=== PATIENT | female | born 1995 | race Caucasian/White ===

== ENCOUNTER → 2019-01-13 | Outpatient (CLI) | payer OTHER ==
[~2019-01-13] MED LIST: AMOX875T60 PO; DOXY-228 PO; HYDR473S9 PO; IBU600 PO; LOR5 PO; MECL25TA9 PO; NO ROUTINE MEDS; ONDA4TAB97 PO; PHEN240S3 PO; SUMA25TA26 PO
[2019-01-13 11:43] LABS: PLATELET COUNT, AUTOMATED 298 K/uL (150-450)
[2019-01-13 14:12] LABS: LDL CHOLESTEROL 104 mg/dl
--- NOTE | 2019-01-13 14:20 | RADIOLOGY IMAGING REPORT ---
FACILITY: [facility] - [place] PATIENT NAME: Henry Shore : 1995 MR: [id number] V: [id number] EXAM DATE: ORDERING PHYSICIAN: JB MARTINEZ TECHNOLOGIST: Location: [facility] - [place] Patient: Henry Shore : 1995 Visit/Account:[id number] Date of Sevice: 01/13/2019 CHEST PA LAT History: Left sided chest pressure. FINDINGS: Comparison studies: Comparison chest x-ray 06/23/2014 Tubes and Lines: None. Lungs and pleura: Well aerated. No evidence of focal consolidation or pleural effusions. Mediastinum: normal. Cardiac silhouette: normal . Osseous structures: Unremarkable for age . IMPRESSION: Normal chest Report Dictated By: Marino Rutherford MD at 01/13/2019 2:10 PM Report E-Signed By: Marino Rutherford MD at 01/13/2019 2:11 PM WSN:[email or web address]
--- NOTE | 2019-01-13 14:30 | EKG ---
FACILITY: [facility] - [place] PATIENT NAME: JOYCE SHERWOOD : [id number] MR: [id number] V: [id number] EXAM DATE: ORDERING PHYSICIAN: JB MARTINEZ TECHNOLOGIST: JENNIFER WHITT Test Reason : Blood Pressure : / mmHG Vent. Rate : 074 BPM Atrial Rate : 074 BPM P-R Int : 144 ms QRS Dur : 082 ms QT Int : 414 ms P-R-T Axes : 058 080 045 degrees QTc Int : 459 ms Normal sinus rhythm Normal ECG No previous ECGs available Referred By: JOSE Confirmed By:
== END ==
LOC: LAB 10:50
PROVIDERS: ATTEND Emergency Medicine
DX: R07.89 Other chest pain (principal)
CPT/HCPCS: 36415; 71046; 82040; 82247; 82306; 82310; 82374; 82435; 82465; 82565; 82607; 82947; 83036; 83718; 83880; 84075; 84132; 84155; 84295; 84443; 84450; 84460; 84478; 84520; 85025; 85379

== ENCOUNTER → 2019-01-20 | Outpatient (CLI) | payer OTHER ==
[~2019-01-20] MED LIST changes: +CHOL500025 PO; +DEX1 PO; +LOSA50TA80 PO
--- NOTE | 2019-01-20 10:00 | RADIOLOGY IMAGING REPORT ---
FACILITY: [facility] PATIENT NAME: Henry Shore : 1995 MR: [id number] V: [id number] EXAM DATE: ORDERING PHYSICIAN: JB MARTINEZ TECHNOLOGIST: Location: [facility] Patient: Henry Shore : 1995 Visit/Account:[id number] Date of Sevice: 01/20/2019 Right upper abdomen ultrasound. HISTORY: Right upper quadrant pain, nausea. COMPARISON: None. The liver measures 21.3 cm in length. The liver parenchyma is diffusely hyperechoic. The liver is f ree of focal defects. The surface of the liver is smooth. The portal vein is patent. No intra or extr ahepatic biliary dilatation. The gallbladder is unremarkable. The sonographic Clark's sign is negati ve. The pancreas is obscured by bowel gas. The right kidney is normal in size. No hydronephrosis. No ascites. Portions of the abdominal aorta and inferior vena cava are obscured. The spleen and left kid opal were not included. The common bile duct measures 1.5 mm in greatest AP diameter. IMPRESSION: Hepatomegaly. Fatty infiltration of the liver. Obscured pancreas. Report Dictated By: Jason Sanchez MD at 01/20/2019 9:45 AM Report E-Signed By: Jason Sanchez MD at 01/20/2019 9:52 AM WSN:[email or web address]
== END ==
LOC: US 01:28
PROVIDERS: ATTEND Emergency Medicine
DX: R16.0 Hepatomegaly, not elsewhere classified (principal); K76.0 Fatty (change of) liver, not elsewhere classified
CPT/HCPCS: 36415; 76705; 82533

== ENCOUNTER → 2019-01-26 | Outpatient (CLI) | payer OTHER | LOC: LAB 07:56 | PROVIDERS: ATTEND Emergency Medicine | DX: R63.4 Abnormal weight loss (principal); E66.9 Obesity, unspecified | CPT/HCPCS: 36415; 81001; 82533 ==

== ENCOUNTER → 2019-01-26 | Outpatient (CLI) | payer OTHER ==
[~2019-01-26] MED LIST changes: +SINCALIDE 5 MCG VIAL INJ ONE; +WATER FOR INJ,STERILE 20 ML 20 ML ONE
--- NOTE | 2019-01-26 11:17 | RADIOLOGY IMAGING REPORT ---
FACILITY: [facility] PATIENT NAME: Henry Shore : 1995 MR: [id number] V: [id number] EXAM DATE: ORDERING PHYSICIAN: CHIVO CAZARES TECHNOLOGIST: Location: [facility] - [place] Patient: Henry Shore : 1995 Visit/Account:[id number] Date of Sevice: 01/26/2019 NM HIDA SCAN HISTORY: upper abdominal pain TECHNIQUE: 5.7 mCi Tc99m Hepatolite was injected intravenously. Multiple sequential gamma camera juan carlos ges of the abdomen were obtained for 30 minutes. At that time, Kinevac was injected intravenously and an additional 30 minutes of gamma camera imaging data was acquired. A computer-generated region of i nterest was placed around the gallbladder and time-activity curve for the gallbladder was derived. Th e gallbladder ejection fraction was calculated. COMPARISON: The bladder ultrasound January 20, 2019 FINDINGS: Liver uptake and excretion: Unremarkable. Time to appearance: Bile ducts: 8 minutes. Gallbladder: 10 minutes. Duodenum: 9 minutes. Duodenal-gastric reflux / extravasation: None. Post IV Kinevac: Normal and prompt contraction of the gallbladder. Patient symptoms: Some nausea with CCK injection Ejection fraction = 95%% (normal range >35%). IMPRESSION: Gallbladder ejection fraction of 95% Report Dictated By: Shreya Delgado MD at 01/26/2019 11:05 AM Report E-Signed By: Shreya Delgado MD at 01/26/2019 11:08 AM WSN:[email or web address]
== END ==
LOC: NUC 06:39
PROVIDERS: ATTEND Surgery
DX: R10.10 Upper abdominal pain, unspecified (principal)
CPT/HCPCS: 78226; A9537; J2805